=== PATIENT | female | born 1995 | race Two or more races ===

== ENCOUNTER 2022-08-04 22:50 | Emergency (ER) | payer OTHER ==
[~2022-08-04] VITALS: Ht 157.5 cm; Wt 64.0 kg
[2022-08-04] MEDS ORDERED: PRENATAL + DHA1 EAC1 (23:45)
[2022-08-05] MEDS ORDERED: PEPCID40 MG PO (06:39)
[2022-08-05] MEDS ORDERED: ONDANSETRON ODT4 MG PO (06:39)
[2022-08-05] MEDS ORDERED: CEPHALEXIN250 MG/5 M PO (06:39)
== END 2022-08-05 07:39 ==
LOC: ER 22:50
DX: O99.611 Diseases of the digestive system complicating pregnancy, first trimester (principal); Z3A.12 12 weeks gestation of pregnancy; K52.9 Noninfective gastroenteritis and colitis, unspecified; Z20.822 Contact with and (suspected) exposure to COVID-19

== ENCOUNTER 2022-08-07 17:02 | Emergency (ER) | payer OTHER ==
[~2022-08-07] VITALS: Ht 157.5 cm; Wt 63.5 kg
[~2022-08-07 17:02] MED LIST: CEPHALEXIN250 MG/5 M PO; ONDANSETRON ODT4 MG PO; PEPCID40 MG PO; PRENATAL + DHA1 EAC1
[2022-08-08] MEDS ORDERED: DICY20TA PO (00:41)
[2022-08-08] MEDS ORDERED: PEPCID AC20 MG PO (00:41)
[2022-08-08] MEDS ORDERED: INTESTINEX680 M1 PO (00:41)
== END 2022-08-08 00:47 | disposition home or self-care (01) ==
LOC: ER 17:02
DX: O99.612 Diseases of the digestive system complicating pregnancy, second trimester (principal); K92.89 Other specified diseases of the digestive system; Z3A.15 15 weeks gestation of pregnancy; K52.9 Noninfective gastroenteritis and colitis, unspecified